=== PATIENT | male | born 1940 | race Two or more races ===

== ENCOUNTER 2018-11-29 08:38 | Day surgery (SDC) | payer OTHER ==
[~2018-11-29 08:38] MED LIST: ADULT ASPIRIN81 MG PO; BUPROPION XL150 MG PO; COZAAR50 MG PO; DILTIAZEM 24HR240 MG PO; FORTAMET500 MG PO; GLIPIZIDE XL5 MG PO; GLYCOTROL CAPS1 EACH PO; GRALISE600 MG PO; OMEPRAZOLE20 MG PO; TIROSINT50 MCG PO; ZOCOR40 MG PO
[2018-11-29] MEDS ORDERED: PERCOCET 5-3251 EACH PO (11:07)
== END 2018-11-29 14:31 | disposition home or self-care (01) ==
LOC: CIR.AMB 08:38
DX: K64.8 Other hemorrhoids (principal)